=== PATIENT | female | born 1940 | race Two or more races ===

== ENCOUNTER 2024-10-13 16:51 | Emergency (ER) | payer MEDICARE, MEDICAID, SELFPAY ==
[2024-10-13 16:53] VITALS: BMI 28.3
[2024-10-13 17:04] VITALS: BP 113/74; PULSE 95; RESP 16; TEMP 36.7; O2SAT 94; BMI 27.8
--- NOTE | 2024-10-13 17:17 | XR_ITS ---
Examination: CT cervical spine without contrast 2-D sagittal reconstructions 2-D coronal reconstructions 3-D reconstructions. Exam date and time:October 13, 2024 1723 hours INDICATIONS: Patient fell today with injury to the neck, neck pain CTDI:vol (mGy) 7.80 DLP: (mGycm) 177 Technique: Multiple 2 mm axial sections of the cervical spine have been obtained. The coronal and sagittal reconstructions have been obtained. 3-D reconstructions have been obtained. Low dose protocols were performed. One or more of the following dose reduction techniques were used; automated exposure control, adjustment of the mA and/or KV according to patient size, use of iterative reconstruction technique. Findings: Axial sections demonstrate intact base of the skull. C1 exhibit satisfactory relationship to the odontoid. No acute cervical vertebral body fracture seen. Alignment posterior spinous processes satisfactory. Impression: No acute cervical fracture.
--- NOTE | 2024-10-13 17:17 | XR_ITS ---
Examination: CT brain head without contrast. 2-D sagittal coronal reconstructions Date and time of exam:October 13, 2024 1723 hours INDICATIONS: Injury to the head today, head pain CTDI: vol (mGy):46.3 DLP: (mGycm):906 Technique: Multiple CT axial sections of the brain have been obtained, 5 mm slice thickness. Contrast has not been administered. 2-D sagittal, coronal reconstructions have been obtained Low dose protocols were performed. One or more of the following dose reduction techniques were used; automated exposure control, adjustment of the mA and/or KV according to patient size, use of iterative reconstruction technique. Findings: No significant ventricular enlargement. Intra-axial or extra-axial hemorrhage density is not seen. No mass effect or midline shift Basal cisterns are not remarkable. Fourth ventricle is midline. Cranial vault intact. Impression: Negative for acute hemorrhage, mass effect or midline shift
--- NOTE | 2024-10-13 17:17 | PD.EDRME ---
Rapid Medical Screening Exam [facility] Arrival date/time: 10/13/24 16:51 84-year-old female with no known medical history presents to the emergency room with a chief complaint of a head injury that occurred today at 9 AM. Patient states she slipped fell and hit her head against the living room table and now has a contusion to the back of her head. Patient states she has a headache and some neck pain. Patient denies any loss of consciousness any dizziness or lightheadedness, or any vomiting. I have greeted and performed a focused initial assessment of this patient. A comprehensive ED assessment and evaluation of the patient, analysis of all test results, and completion of the medical decision making process will be conducted by additional ED providers. Chief Complaint: Fall Time Seen by Provider: 10/13/24 17:13 Vital signs: Vital Signs Temperature 98.1 F 10/13/24 17:04 Pulse Rate 95 10/13/24 17:04 Respiratory Rate 16 10/13/24 17:04 Blood Pressure 113/74 10/13/24 17:04 Pulse Oximetry (%) 94 L 10/13/24 17:04 Oxygen Delivery Method Room Air 10/13/24 17:04 Vital signs reviewed by provider: Yes
== END 2024-10-13 20:13 | disposition left against medical advice (07) ==
PROVIDERS: Emergency Provider Family Medicine
DX: S00.03XA Contusion of scalp, initial encounter (principal); S19.9XXA Unspecified injury of neck, initial encounter; W01.190A Fall on same level from slipping, tripping and stumbling with subsequent striking against furniture, initial encounter; Z53.29 Procedure and treatment not carried out because of patient's decision for other reasons
CPT/HCPCS: 70450; 72125; 99281